=== PATIENT | female | born 1960 ===

== ENCOUNTER 2021-10-02 18:17 | Emergency (ER) | payer BC ==
[2021-10-02] MEDS ORDERED: FLU Vacc QS2021-22 36MOS UP/PF 60 MCG/0.5 ML Syringe IM ONE (20:00)
[2021-10-02 20:15] LABS: CORONAVIRUS COVID-19 NAA NEGATIVE (NEGATIVE)
[2021-10-02] MEDS ORDERED: HYDROmorphone 0.5 MG/0.5 ML Syringe IVPUSH ONE (20:29)
[2021-10-02] MEDS ORDERED: Ondansetron 4 MG/2 ML SDV IVPUSH ONE (20:29)
[2021-10-02] MEDS ORDERED: Sodium Chloride 0.9% 1,000 ML IV SCH (20:30)
[2021-10-03] MEDS ORDERED: Acetaminophen 325 MG Tab PO ONE (00:06)
== END 2021-10-03 00:30 | disposition home or self-care (01) ==
LOC: JD.ED 18:17
DX: A08.4 Viral intestinal infection, unspecified (principal); E78.00 Pure hypercholesterolemia, unspecified; E11.9 Type 2 diabetes mellitus without complications; Z79.84 Long term (current) use of oral hypoglycemic drugs; Z79.899 Other long term (current) drug therapy; Z87.891 Personal history of nicotine dependence; Z20.822 Contact with and (suspected) exposure to COVID-19; Z23 Encounter for immunization
CPT/HCPCS: 0240U; 36415; 74177; 76705; 80053; 81001; 83690; 83735; 85025; 86140; 90471; 90686; 96374; 96375; 99284; A9270; J1170; J2405; J7030; 99285; G0008

== ENCOUNTER 2022-04-15 14:10 | Emergency (ER) | payer BC | END 2022-04-15 14:24 | disposition left against medical advice (07) | LOC: JD.ED 14:10 | DX: Z53.21 Procedure and treatment not carried out due to patient leaving prior to being seen by health care provider (principal) ==